=== PATIENT | male | born 1935 ===

== ENCOUNTER 2017-03-24 21:02 | Emergency (ER) | payer SELFPAY ==
[2017-03-24 21:28] VITALS: BP 175/90; PULSE 83; TEMP 97.3; O2SAT 96
--- NOTE | 2017-03-24 22:06 | C.PDOC ---
History Of Present Illness 81 year old male with a Hx of chronic back pain presents to the ER with a complaint of lower back pain that worsens when standing from a sitting position. Denies trauma, dysuria, hematuria, incontinence, weakness, or numbness. Time Seen by Provider: 03/24/17 21:38 Chief Complaint (Nursing): Back Pain History Per: Patient History/Exam Limitations: no limitations Onset/Duration Of Symptoms: Hrs Current Symptoms Are (Timing): Still Present Quality Of Discomfort: Unable To Describe Previous Symptoms: Back Pain, Chronic Pain Associated Symptoms: None Exacerbating Factor(s): Standing Recent travel outside of the [place]: No Past Medical History Reviewed: Historical Data, Nursing Documentation, Vital Signs Vital Signs: Last Vital Signs Temp 97.3 F L 03/24/17 21:23 Pulse 83 03/24/17 21:23 Resp 20 03/24/17 22:36 BP 175/90 H 03/24/17 21:23 Pulse Ox 96 03/25/17 01:37 - Medical History PMH: HTN Surgical History: No Surg Hx Family History: States: Unknown Family Hx - Social History Hx Alcohol Use: No Hx Substance Use: No - Immunization History Hx Tetanus Toxoid Vaccination: No Hx Influenza Vaccination: Yes Hx Pneumococcal Vaccination: No Review Of Systems Genitourinary: Negative for: Dysuria, Incontinence, Hematuria Musculoskeletal: Positive for: Back Pain Neurological: Negative for: Weakness, Numbness Physical Exam - Physical Exam Appears: Non-toxic, No Acute Distress Skin: Normal Color, Warm, Dry Head: Atraumatic, Normacephalic Back: No CVA Tenderness, No Vertebral Tenderness, Paraspinal Tenderness (Lumbar) Extremity: Normal ROM (x4) Neurological/Psych: Oriented x3, Normal Speech, Normal Motor, Normal Sensation Gait: Steady ED Course And Treatment O2 Sat by Pulse Oximetry: 96 (Room air) Pulse Ox Interpretation: Normal Progress Note: Tylenol administered. On reevaluation, patient reports improvement of pain, he is ambulatory in the ER without any difficulty. Patient is an elderly male with elevated BP on small doses of cozaar, he reports he is complaint with his medication, advised to continue taking his cozaar and follow up with his PMD. Disposition Counseled Patient/Family Regarding: Diagnosis, Need For Followup, Rx Given - Disposition Referrals: 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 - Scribe Statement The provider has reviewed the documentation as recorded by the Scribe Tolu Osman
[2017-03-24 22:37] VITALS: RESP 20
== END 2017-03-24 22:36 | disposition home or self-care (01) ==
LOC: C.ER 21:02
DX: M54.5 Low back pain (principal); I10 Essential (primary) hypertension